=== PATIENT | female | born 1980 | race Caucasian/White ===

== ENCOUNTER → 2019-03-31 | Outpatient (CLI) | payer OTHER ==
--- NOTE | 2019-04-01 08:55 | KCIC ---
Examination: MRI of the right ankle without contrast HISTORY: History of right ankle pain Comparison: None available Technique: Multiplanar, multisequence MR imaging of the right ankle performed without contrast. FINDINGS: The attachment of the Achilles tendon to the calcaneus grossly appears intact. The attachment of the plantar fascia between. The calcaneus grossly appears intact. There is a 1.7 cm cystic structure identified in the proximal calcaneus at the site of attachment of the Achilles tendon could be intraosseous cyst or ganglion.. There is oblique nondisplaced fracture of the distal cuboid bone with the fracture line extending and involving the inferior aspect of the cuboid laterally and extending to the cuboid fourth metatarsal joint. There is surrounding T2 signal identified within the cuboid bone. The visualized Lisfranc ligament appears intact. The alignment of the tarsometatarsal joint grossly appears unremarkable There is mild increased T2 signal identified in the base of the fourth and fifth metatarsals and the lateral cuneiform likely trabecular edema due to injury. The visualized peroneal tendons, anterior extensor compartment tendons, flexor tendons grossly appears unremarkable. The deltoid ligament, anterior, posterior tibiofibular, talofibular ligaments appear intact. The calcaneofibular ligament appears intact. Fat is present within the sinus tarsi. IMPRESSION: 1. Nondisplaced fracture of the lateral distal cuboid bone. 2. Mild increased T2 signal identified in the base of the fourth, fifth metatarsals and the lateral cuneiform likely trabecular edema secondary to injury. 3. 1.7 cm cystic structure identified in the proximal calcaneus at the site of attachment of the Achilles tendon could be intraosseous cyst or ganglion. Electronically signed by: Damion Smith MD (04/01/2019 8:52 AM) [id number]
== END | disposition home or self-care (01) ==
LOC: KCIC MRI 15:55
DX: S92.214A Nondisplaced fracture of cuboid bone of right foot, initial encounter for closed fracture (principal); X58.XXXA Exposure to other specified factors, initial encounter; Y93.89 Activity, other specified; Y92.89 Other specified places as the place of occurrence of the external cause; Y99.8 Other external cause status
CPT/HCPCS: 73721

== ENCOUNTER → 2019-06-30 | Outpatient (CLI) | payer OTHER ==
--- NOTE | 2019-06-30 16:39 | KCIC ---
MR of the right mid foot HISTORY: Closed nondisplaced fracture of the cuboid bone. TECHNIQUE: Routine multiplanar sequences are obtained, centered at the midfoot. Comparison is made with 03/31/2019. FINDINGS: The fracture involving the distal lateral cuboid bone is again seen. Reduction in marrow edema. The fracture line is visualized but less apparent than on previous study. No change in alignment. No new areas of bone marrow edema or bone destruction are identified. No significant joint effusion. Degenerative changes are identified at the first MTP joint. Subtalar joints are patent. Tarsal sinus is intact. Lisfranc ligament complex is intact as is tarsometatarsal alignment. No evidence of tendon disruption or significant tendon sheath fluid. IMPRESSION: Decrease edema and fracture line visualization at the cuboid bone, presumably due to healing. Electronically signed by: Reece Desir MD (06/30/2019 4:36 PM) [facility]
== END | disposition home or self-care (01) ==
LOC: KCIC MRI 14:57
DX: S92.214 Nondisplaced fracture of cuboid bone of right foot (principal); M19.071 Primary osteoarthritis, right ankle and foot; X58.XXXA Exposure to other specified factors, initial encounter; Y93.89 Activity, other specified; Y92.89 Other specified places as the place of occurrence of the external cause; Y99.8 Other external cause status
CPT/HCPCS: 73718